=== PATIENT | male | born 1980 | race Caucasian/White ===

== ENCOUNTER 2019-09-02 11:32 | Emergency (ER) | payer BC, SELFPAY ==
[2019-09-02 11:44] VITALS: BP 150/97; PULSE 72; RESP 16; TEMP 37; O2SAT 100
--- NOTE | 2019-09-02 11:49 | ED.BACK ---
HPI - Back Pain/Injury General Chief Complaint: Back Pain/Injury Stated Complaint: lower back pain/hip pain Time Seen by Provider: 09/02/19 11:52 Source: patient and RN notes reviewed Mode of arrival: ambulatory Limitations: no limitations History of Present Illness HPI Narrative: This is a 39 years old male presents to the office for an evaluation of lower back pain since this morning at around 7pm. It happens at work. 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 He jumped out with the last bag and felt a immediate pain in his back when he landed on the ground with his feet. He did not fall onto his buttock. His back pain also radiated down his right thigh. Pain is intermittent with certain movement. Denies numbness or tingling in his feet. Denies urinary or bowel incontinence. He took ibuprofen and Tylenol prior to arrival. Admits to history of lower back pain however he has not had any symptoms for years. Denies history of also a GI bleed. Related Data Allergies Allergy/AdvReac Type Severity Reaction Status Date / Time acetaminophen [From Vicodin] AdvReac Nausea and Verified 09/02/19 11:56 Vomiting hydrocodone [From Vicodin] AdvReac Nausea and Verified 09/02/19 11:56 Vomiting Review of Systems Review of Systems: Narrative: CONSTITUTIONAL: Denies fever, or feeling ill CARDIOVASCULAR: Denies chest pain RESPIRATORY: Denies dyspnea GASTROINTESTINAL: Denies abdominal pain, nausea, vomiting GENITOURINARY: Denies urinary/bowel problem SKIN: Denies rash MUSCULOSKELETAL:Reports lower back pain with right thigh pain NEUROLOGIC: Denies lightheaded All other systems reviewed are negative, except as documented in HPI. PMFSH Comments At time of signature, I agree with nursing past medical, surgical, social and family history. There is no relevant family history pertinent to the presenting complaint. Exam Narrative: Exam Narrative: GENERAL: This is a well-nourished, well-developed patient, in no apparent distress. 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 CARDIOVASCULAR: Regular rate and rhythm without murmurs, gallops, or rubs. RESPIRATORY: Clear to auscultation. Breath sounds equal bilaterally. No wheezes, rales, or rhonchi. GASTROINTESTINAL: Abdomen soft, non-tender, nondistended. Bowel sounds are active. No guarding. SKIN: warm, intact with no suspicious lesions or rash, good texture and turgor. NEURO: awake, alert, and oriented to person, place and time. There were no obvious focal neurologic abnormalities. BACK: Tenderness in the paraspinous muscles in the lumbar area. No tenderness over the spinous processes of the lumbar vertebrae. LEGS: Normal strength including dorsi-flexion and plantar flexion of the feet. Right straight leg rise positive. Normal and symmetrical knee reflexes. Course Vital Signs Vital signs: Vital Signs Temperature 98.6 F 09/02/19 11:44 Pulse Rate 72 09/02/19 11:44 Respiratory Rate 16 09/02/19 11:44 Blood Pressure 150/97 H 09/02/19 11:44 Pulse Oximetry 100 09/02/19 11:44 Temperature 98.6 F 09/02/19 11:44 Pulse Rate 72 09/02/19 11:44 Respiratory Rate 16 09/02/19 11:44 Blood Pressure 150/97 H 09/02/19 11:44 Pulse Oximetry 100 09/02/19 11:44 MDM - Back Pain/Injury MDM Narrative Medical decision making narrative: Patient is Urgent/Emergent. BP elevated due to current condition w/o HTN in PMH (Measure Met). Discharge instructions reviewed with patient, as well as provided in writing per nursing staff. The instructions also include specific and strict return/GO TO THE ER as well as f/u information. All questions have been answered, and the patient deny any further questions with discharge and discharge plan. Differential Diagnosis Differential diagnosis: Likely lumbar radiculopathy, sciatica, strain of lumbar region, thoracic back pain and discitis Critical Care Time Critical Care Time Critical Care [place]
== END 2019-09-02 12:12 | disposition home or self-care (01) ==
PROVIDERS: Emergency Provider Nurse Practitioner
DX: M54.31 Sciatica, right side (principal)
CPT/HCPCS: 99203; G0463